=== PATIENT | male | born 1965 | race Caucasian/White ===

== ENCOUNTER 2023-11-25 16:54 | Inpatient (IN) | payer BC, SELFPAY ==
[2023-11-25 16:54] VITALS: BP 129/97; PULSE 129; RESP 18; O2SAT 97; BMI 32.5
--- NOTE | 2023-11-25 17:39 | PC.NURSE ---
Dr. Becker at [facility] for pt eval
--- NOTE | 2023-11-25 17:46 | HMH.EDGENADL ---
Discharge Plan Disposition Patient Disposition: Admitted Clinical Impressions Clinical Impression: Alcohol abuse with withdrawal without complication, Hypomagnesemia, Elevated lactic acid level Discharge ED Provider: Tod Becker General Adult HPI General Chief complaint: Alcohol Stated complaint: throat pain Time Seen by Provider: 11/25/23 17:10 Mode of Arrival: EMS Source of Information: Patient and EMS Limitations: etoh Description of Symptoms (Recalled from ER Triage Doc. by RN): pt presents to ED by [facility] c/o sore throat and etoh. per report pt states he had 2 shots of 92 proof today. pt denies SI/HI at this time. History of Present Illness HPI narrative: Patient is a 58-year-old male with no reported comorbidities, hard of hearing, chronic alcoholic who presents emergency department for evaluation of wanting to discontinue alcohol use. Patient states he used to drink beer socially until his 2 and half years ago and since then he has drank 10 shots of [place] every day. He has some sore throat over the last couple of days and is wanting to come off of alcohol at this time. Last drink 8 AM this morning with 2 shots. He has vague abdominal discomfort but no significant pain. There is associated nausea without vomiting. Patient has never been hospitalized for alcohol withdrawal. Related Data Allergies Allergy/AdvReac Type Severity Reaction Status Date / Time No Known Allergies Allergy Verified 11/25/23 16:59 [facility] Disclaimer: The information contained in this section may have been updated after the patient was seen, as this information can be updated by other users. Medical History (Updated 11/25/23 @ 23:16 by Tod Becker MD) COPD (chronic obstructive pulmonary disease) GERD (gastroesophageal reflux disease) Pancreatitis Sleep apnea Social History (Updated 11/25/23 @ 22:56 by Daniela Barclay RN) Smoking Status: Former smoker alcohol intake: current current occupational status: employed Travel in the last 8 weeks: Inside the [place] ROS Obtained: Yes Systems reviewed as appropriate & no additional complaints except as documented Physical Exam General General appearance: alert and in no apparent distress Head Head exam: atraumatic and normocephalic Eye Eye exam: Present PERRL and EOMI ENT ENT exam: Present mucous membranes moist Neck Neck exam: Present normal inspection Chest Chest inspection: Present normal inspection and symmetric chest wall rise Respiratory Respiratory exam: Present normal lung sounds bilaterally; Absent respiratory distress Cardiovascular Cardiovascular exam: Present regular rate and normal rhythm Abdominal Exam Abdominal exam: Present soft; Absent tenderness, guarding or rebound Extremities Exam Extremities exam: Present normal inspection Neurological Exam Neurological exam: Present alert Psychiatric Psychiatric exam: Present normal affect Skin Skin exam: Present warm and dry Medical Decision Making [place] Inquiry Pt receiving controlled substance: No Vital Signs: 11/25/23 16:54 11/25/23 20:05 11/25/23 20:30 Temperature Temperature Source Pulse Rate 117 H 124 H Pulse Rate [Right Radial] 129 H Respiratory Rate 18 Blood Pressure 130/94 H 145/95 H Blood Pressure [Right Arm] 129/97 H Blood Pressure Mean 106 102 Blood Pressure Mean [Right Arm] 107 Blood Pressure Source [Right Arm] Automatic Cuff Blood Pressure Position [Right Arm] Sitting 02 Sat by Pulse Oximetry 97 99 93 L Oxygen Delivery Method Room Air 11/25/23 20:39 Temperature 98.2 F Temperature Source Oral Pulse Rate 124 H Pulse Rate [Right Radial] Respiratory Rate 18 Blood Pressure 145/95 H Blood Pressure [Right Arm] Blood Pressure Mean Blood Pressure Mean [Right Arm] Blood Pressure Source [Right Arm] Blood Pressure Position [Right Arm] 02 Sat by Pulse Oximetry Oxygen Delivery Method Lab Data Lab Results 11/25/23 17:00: SARS-CoV-2 (PCR) Not detected, Influenza A Untype (PCR) Not detected, Influenza Type B (PCR) Not detected 11/25/23 17:35: WBC 9.5, RBC 4.98, Hgb 14.2, Hct 42.5, MCV 85.4, MCH 28.5, MCHC 33.4, RDW 18.1 H, Plt Count 162, MPV 7.5, Neut % (Auto) 78.3, Lymph % (Auto) 17.5, [place] % (Auto) 3.2, Eos % (Auto) 0.4, Baso % (Auto) 0.6, Neut # (Auto) 7.5, Lymph # (Auto) 1.7, [place] # (Auto) 0.3, Eos # (Auto) 0.0, Baso # (Auto) 0.1, Sodium 140, Potassium 4.0, Chloride 98, Carbon Dioxide 23, Anion Gap 23.0 H, BUN 6 L, Creatinine 0.90, Estimated Creat Clear 125, Estimated GFR 86, Est GFR ( Amer) 105, Glucose 142 H, Calcium 8.0 L, Magnesium 1.4 L, Total Bilirubin 0.8, AST 102 H, ALT 43, Alkaline Phosphatase 109, Total Protein 7.9, Albumin 4.7, Globulin 3.2, Albumin/Globulin Ratio 1.5, Lipase 236, Plasma/Serum Alcohol 326 H 11/25/23 17:46: VBG pH 7.42 H, VBG pCO2 31.7 L, VBG pO2 39.0, VBG HCO3 19.9 L, VBG Total CO2 20.8 L, VBG O2 Saturation 69.3, VBG Base Excess -4.7 L 11/25/23 17:52: Group A Strep Rapid Negative 11/25/23 18:46: Lactate 5.0 H 11/25/23 20:17: Urine Color Yellow, Urine Appearance Slightly cloudy, Urine pH 5.5, Ur Specific Reform >= 1.030, Urine Protein 2+, Urine Glucose (UA) Negative, Urine Ketones Trace, Urine Blood 2+, Urine Nitrate Negative, Urine Bilirubin Negative, Urine Urobilinogen 0.2, Ur Leukocyte Esterase Negative, Urine RBC 10-20, Urine WBC None, Ur Squamous Epith Cells Occasional, Urine Bacteria Trace 11/25/23 17:35 11/25/23 17:35 Orders (Tests/Meds): ED MEDICATIONS Generic Name Dose Route Start Last Admin Trade Name Valentin PRN Reason Stop Dose Admin Chlordiazepoxide HCl 25 mg 11/26/23 09:00 Chlordiazepoxide 25mg Capsule PO 12/26/23 08:59 TID [facility] Enoxaparin Sodium 40 mg 11/25/23 20:15 11/25/23 22:25 Enoxaparin 40mg/0.4ml Syringe SQ 12/25/23 20:14 40 mg DAILY SAM Administration Famotidine 20 mg 11/25/23 21:00 Famotidine 20mg/2ml Vial IV 12/25/23 20:59 BID SAM Folic Acid 1 mg 11/25/23 20:15 11/25/23 22:25 Folic Acid 1mg Tablet PO 12/25/23 20:14 1 mg DAILY SAM Administration Multivitamins 10 ml/ Thiamine 1,015 mls @ 125 mls/hr 11/25/23 20:15 11/25/23 22:26 HCl 100 mg/ Magnesium Sulfate IV 12/25/23 20:14 125 mls/hr 2 gm/ Lactated Ringer's DAILY SAM Administration Lorazepam 2 mg 11/25/23 20:11 Lorazepam 2mg/Ml Vial IV 12/25/23 20:10 Q1HP PRN CIWA >16 Lorazepam 1 mg 11/25/23 21:19 Lorazepam 1mg Tablet PO 12/25/23 21:18 Q6HP PRN CIWA 2-7 Multivitamins 1 each 11/26/23 17:00 Multivitamin Tablet PO 12/26/23 16:59 1700 SAM Nicotine 21 mg 11/25/23 20:09 Nicotine 21mg/24hr Patch TD 12/25/23 20:08 DAILYP PRN Nicotine Cravings Ondansetron HCl 4 mg 11/25/23 20:09 11/25/23 21:18 Ondansetron 4mg/2ml Vial IV 12/25/23 20:08 4 mg Q8HP PRN Administration Nausea Pantoprazole Sodium 40 mg 11/25/23 21:00 11/25/23 21:18 Pantoprazole 40mg Vial IV 12/25/23 20:59 40 mg HS SAM Administration Phenol 0 ml 11/25/23 21:51 Phenol Throat [place] 177 Ml Bottle MM 12/25/23 21:50 NEEDED PRN Sore Throat Sodium Chloride 10 ml 11/25/23 17:00 Sodium Chloride 0.9% 10ml Flush Syringe IV 12/25/23 16:59 NEEDED PRN Maintain IV Site Sodium Chloride 10 ml 11/25/23 17:54 Sodium Chloride 0.9% 10ml Vial IV 12/25/23 17:53 NEEDED PRN to Dilute Lorazepam inj Sodium Chloride 10 ml 11/25/23 20:11 Sodium Chloride 0.9% 10ml Vial IV 12/25/23 20:10 NEEDED PRN to Dilute Lorazepam inj Sodium Chloride 8 ml 11/25/23 20:11 Sodium Chloride 0.9% 10ml Vial IV 12/25/23 20:10 NEEDED PRN dilute pepcid Thiamine HCl 100 mg 11/25/23 20:15 11/25/23 22:25 Thiamine 100mg Tablet PO 11/27/23 09:01 100 mg DAILY SAM Administration Discontinued Medications Generic Name Dose Route Start Last Admin Trade Name Freq PRN Reason Stop Dose Admin Lactated Ringer's 1,000 mls @ 999 mls/hr 11/25/23 17:44 11/25/23 17:48 Lactated Ringer's 1000 Ml Bag IV 11/25/23 18:44 999 mls/hr .Q1H1M ONE Administration Magnesium Sulfate 2 gm in 50 mls @ 50 mls/hr 11/25/23 20:05 11/25/23 21:18 Magnesium Sulfate 2gm/50ml Premix IV 11/25/23 21:04 50 mls/hr ONCE ONE Administration Lorazepam 1 mg 11/25/23 17:54 11/25/23 18:00 Lorazepam 2mg/Ml Vial IV 11/25/23 17:55 1 mg ONCE ONE Administration Ondansetron HCl 4 mg 11/25/23 17:44 11/25/23 17:48 Ondansetron 4mg/2ml Vial IV 11/25/23 17:45 4 mg ONCE ONE Administration ORDERS Category Date Time Status Complete Blood Count Auto Diff AMLAB Lab 11/26/23 06:00 Ordered Complete Blood Count Auto Diff Stat Lab 11/25/23 17:35 Completed Comprehensive Metabolic Panel AMLAB Lab 11/26/23 06:00 Ordered Comprehensive Metabolic Panel Stat Lab 11/25/23 17:35 Completed Ethyl Alcohol Stat Lab 11/25/23 17:35 Completed Lactic Acid Stat Lab 11/25/23 18:46 Completed Lipase Stat Lab 11/25/23 17:35 Completed MG [Magnesium] Stat Lab 11/25/23 17:35 Completed Magnesium AMLAB Lab 11/26/23 06:00 Ordered Phosphorous Routine Lab 11/25/23 20:11 Ordered Prothrombin Time INR Routine Lab 11/25/23 20:11 Ordered Rapid PCR Covid and Flu A/B Stat Lab 11/25/23 17:00 Completed Rapid Strep Scrn Group A [Strep Scrn Group A (Rapid)] Lab 11/25/23 17:52 Completed Stat UA [Urinalysis and Microscopic] Stat Lab 11/25/23 20:17 Completed Vitamin B1 AMLAB Lab 11/26/23 06:00 Ordered Vitamin B12 Routine Lab 11/25/23 20:11 Ordered Strep Screen Confirmation Stat Micro 11/25/23 17:52 Received VBG [Venous Blood Gas] Stat RT 11/25/23 17:46 Completed ECG initial [place] Stat Y 11/25/23 18:19 Ordered Medical Decision Narrative: In summary patient is a 58-year-old male with past medical history described above who presents emergency department for evaluation of sore throat and alcohol withdrawal. Patient is hemodynamically stable nontoxic-appearing upon arrival, significant tachycardia, afebrile. Differential includes alcohol withdrawal, strep pharyngitis, COVID, among others. Workup will be conducted with hematologic labs, urinalysis, viral swab, strep swab. CIWA scale will be performed. [id number] ultrasound at bedside shows no ascites (images were not saved to permanent archive therefore no note is warranted). Yes initial workup reviewed by me, hematologic labs show no significant leukocytosis or anemia, mild respiratory alkalosis, hypomagnesemia which will be repleted. Patient has elevated lactate and significantly elevated alcohol level which is being volume resuscitated. I do not suspect that patient is septic given his lack of infectious symptoms and no significant white count. Patient would benefit from admission for monitoring for acute withdrawal and prolonged volume resuscitation with serial lactate measurements. Given this the case was discussed with hospital medicine who admit the patient their service for continued evaluation at this time. Critical Care Critical Care Time Critical Care Time: No
--- NOTE | 2023-11-25 17:46 | PC.NURSE ---
Notified RT of VBG
[2023-11-25] MEDS: ONDANSETRON 4MG/2ML VIAL 4 MG IV ×2 (17:48→21:18)
[2023-11-25] MEDS: LACTATED RINGERS 1000ML 1,000 ML 999 ML IV (17:48)
[2023-11-25 17:52] LABS: Coronavirus 19, PCR Not Detected (NotDetected); Influenza A, PCR Not Detected (NotDetected); Influenza B, PCR Not Detected (NotDetected)
[2023-11-25 17:52] LABS: VBG Base Excess -4.7 mmol/L (-2.4-2.3); VBG HCO3 19.9 mmol/L (23-30); VBG Oxygen Saturation 69.3 % (50-70); VBG PCO2 31.7 mmol/L (35-51); VBG PH 7.42 mmol/L (7.31-7.41); VBG Total CO2 20.8 mmol/L (23-27)
[2023-11-25 17:53] LABS: Basophils # 0.1 K/mm3 (0-0.2); Basophils % 0.6 % (0.1-2.0); Eosinophils % 0.4 % (0.1-12.0); Hematocrit 42.5 % (42.0-52.0); Hemoglobin 14.2 g/dL (14.1-18.0); Lymphocytes # 1.7 K/mm3 (0.7-4.5); Lymphocytes % 17.5 % (10-50); Mean Corpuscular HGB Conc 33.4 g/dL (31.8-35.4); Mean Corpuscular Hemoglobin 28.5 pg (27.0-31.2); Mean Corpuscular Volume 85.4 fl (80-94); Mean Platelet Volume 7.5 fl (7.4-10.4); Monocytes # 0.3 K/mm3 (0.1-1.0); Monocytes % 3.2 % (1.7-9.3); Neutrophils # 7.5 K/mm3 (1.8-7.8); Neutrophils % 78.3 % (37.0-80.0); Platelet Count 162 K/mm3 (142-424); Red Blood Count 4.98 M/mm3 (4.60-6.20); Red Cell Distribution Width 18.1 % (11.5-17.5); White Blood Count 9.5 K/mm3 (4.8-10.8)
[2023-11-25] MEDS: LORazepam 2MG/ML VIAL 1 MG IV (18:00)
[2023-11-25 18:05] LABS: Alanine Aminotransferase 43 U/L (12-78); Albumin Level 4.7 g/dl (3.5-5.0); Albumin/Globulin Ratio 1.5 (1.1-1.8); Alkaline Phosphatase 109 U/L (38-126); Aspartate Amino Transferase 102 U/L (17-59); Bilirubin,Total 0.8 mg/dl (0.2-1.3); Blood Urea Nitrogen 6 mg/dl (9-20); Carbon Dioxide 23 mmol/L (22.0-30.0); Chloride 98 mmol/L (98-107); Creatinine Clearance Estimated 125 mL/min (50-200); Estimated Glomerular Filt Rate 86 ml/min (>60); GFR (African American) 105 ML/MIN (>60); Globulin 3.2 g/dL (1.3-3.2); Glucose 142 mg/dl (74-100); Sodium 140 mmol/L (136-145); Total Protein,Serum 7.9 g/dl (6.3-8.2)
[2023-11-25 18:06] LABS: Lipase 236 U/L (23-300); Magnesium 1.4 mg/dl (1.6-2.3)
--- NOTE | 2023-11-25 18:19 | ECG_ITS ---
APPROVED REPORT Exam: Resting ECG HR:116 bpm ECG Measurements Heart Rate 116 AXES MS 132 P 38 QRSd 93 QRS 41 QT 319 T 33 QTc 388 Conclusion SINUS TACHYCARDIA ABNORMAL RHYTHM ECG UNCONFIRMED REPORT Electronically signed by : Seb Haynes MD 11/29/2023 14:50:01
[2023-11-25 18:29] LABS: Strep Scrn Group A (Rapid) Negative (Negative)
[2023-11-25 18:34] LABS: Ethyl Alcohol 326 mg/dl (0-10)
[2023-11-25 20:05] VITALS: BP 130/94; PULSE 117; O2SAT 99
--- NOTE | 2023-11-25 20:14 | P.HP_ITS ---
History of Present Illness *Admission Date: 11/25/23 *Reason for visit:: alcohol withdrawal *History of present illness: This is a 58-year-old male with reported hypertention, Prediabetes, former smoker, obesity , hard of hearing, chronic alcoholic who presents emergency department for evaluation. Patient last drink 8 AM this morning with allegedly 2 shots. He started drinking heavily after his 2 and half years ago. Patient stated he wanting to discontinue alcohol use. Currently c/o palpitations and feeling shaky He has some sore throat over the last couple of days and is wanting to come off of alcohol at this time. He has vague abdominal discomfort but no significant pain. There is associated nausea without vomiting. Patient has never been hospitalized for alcohol withdrawal. Admitted for further treatment and management. [facility] Disclaimer: The information contained in this section may have been updated after the patient was seen, as this information can be updated by other users. Medical History (Updated 11/26/23 @ 00:08 by Grant Chiang APRN) COPD (chronic obstructive pulmonary disease) GERD (gastroesophageal reflux disease) Pancreatitis Sleep apnea Social History (Updated 11/25/23 @ 22:56 by Daniela Barclay RN) Smoking Status: Former smoker alcohol intake: current current occupational status: employed Travel in the last 8 weeks: [place] the [place] Review of Systems Review of Systems Review of systems:: pertinent systems reviewed and negative unless documented below Meds Home Medications and Allergies Home Medications Medication Instructions Recorded Confirmed Type cyclobenzaprine 10 mg tablet 10 mg PO TID PRN Muscle Spasm 11/26/23 11/26/23 History multivitamin with minerals 1 tab PO DAILY 11/26/23 11/26/23 History omeprazole 20 mg capsule,delayed 20 mg PO BID 11/26/23 11/26/23 History release New Prescriptions to Start Prescriptions: Allergies Allergy/AdvReac Type Severity Reaction Status Date / Time No Known Allergies Allergy Verified 11/25/23 16:59 Exam Data for Last 24 hours Vital signs and Labs for Last 24 Hours: Pulse Resp BP Pulse Ox O2 Del Method 129 H 18 129/97 H 97 Room Air 11/25/23 16:54 11/25/23 16:54 11/25/23 16:54 11/25/23 16:54 11/25/23 16:54 Laboratory Results - last 24 hr 11/25/23 17:00: SARS-CoV-2 (PCR) Not detected, Influenza A Untype (PCR) Not detected, Influenza Type B (PCR) Not detected 11/25/23 17:35: WBC 9.5, RBC 4.98, Hgb 14.2, Hct 42.5, MCV 85.4, MCH 28.5, MCHC 33.4, RDW 18.1 H, Plt Count 162, MPV 7.5, Neut % (Auto) 78.3, Lymph % (Auto) 17.5, [place] % (Auto) 3.2, Eos % (Auto) 0.4, Baso % (Auto) 0.6, Neut # (Auto) 7.5, Lymph # (Auto) 1.7, [place] # (Auto) 0.3, Eos # (Auto) 0.0, Baso # (Auto) 0.1, Sod ium 140, Potassium 4.0, Chloride 98, Carbon Dioxide 23, Anion Gap 23.0 H, BUN 6 L, Creatinine 0.90, Estimated Creat Clear 125, Estimated GFR 86, Est GFR ( Amer) 105, Glucose 142 H, Calcium 8.0 L, Magnesium 1.4 L, Total Bilirubin 0.8, AST 102 H, ALT 43, Alkaline Phosphatase 109, Total Protein 7.9, Albumin 4.7, Globulin 3.2, Albumin/Globulin Ratio 1.5, Lipase 236, Plasma/Serum Alcohol 326 H 11/25/23 17:46: VBG pH 7.42 H, VBG pCO2 31.7 L, VBG pO2 39.0, VBG HCO3 19.9 L, VBG Total CO2 20.8 L, VBG O2 Saturation 69.3, VBG Base Excess -4.7 L 11/25/23 17:52: Group A Strep Rapid Negative 11/25/23 18:46: Lactate 5.0 H I & O for Last 24 hours: Intake & Output 11/22/23 11/23/23 11/24/23 11/25/23 23:59 23:59 23:59 23:59 Weight 99.79 kg Constitutional Constitutional: mild distress and cooperative *Routine HEENT Exam Head: Present normocephalic and atraumatic Eye: Present EOMI, PERRL and normal accommodation ENT: Present mucous membranes dry *Routine Neck Exam Neck: Present supple, full ROM and trachea midline *Routine Respiratory Exam Respiratory: Present diminished air movement, normal respiratory effort, able to speak in complete sentences and symmetric chest movement; Absent respiratory distress *Routine Cardiovascular Exam Cardiovascular: Present RRR, Normal S1, Normal S2 and tachycardia *Routine Abdominal Exam Abdominal: Present soft and normoactive bowel sounds; Absent organomegaly *Routine Rectal Exam Rectal:: deferred *Routine Genitalia Exam Genitalia:: deferred *Routine Extremities Exam Extremities: Present full ROM and pulses intact; Absent cyanosis, clubbing or edema *Routine Skin Exam Skin: Present intact, dry and warm *Routine Neurological Exam Neurological: Present alert, oriented X3, normal speech and tremors Routine Psychiatric Exam Psychiatric: Present normal thought process, cooperative and good judgment H&P: Result Imaging and Cardiology EKG: Status: image reviewed by me and Preliminary report Assessment and Plan *Assessment and plan (1) Alcohol abuse with withdrawal without complication: Status: Acute Category: Medical Code(s): F10.130 - Alcohol abuse with withdrawal, uncomplicated (2) Elevated lactic acid level: Status: Acute Category: Medical Code(s): R79.89 - Other specified abnormal findings of blood chemistry (3) Hypomagnesemia: Status: Acute Category: Medical Code(s): E83.42 - Hypomagnesemia (4) COPD (chronic obstructive pulmonary disease): Status: Acute Qualifiers: COPD type: unspecified COPD Qualified Code(s): J44.9 - Chronic obstructive pulmonary disease, unspecified Category: Medical Code(s): J44.9 - Chronic obstructive pulmonary disease, unspecified (5) GERD (gastroesophageal reflux disease): Status: Acute Qualifiers: Esophagitis presence: esophagitis presence not specified Qualified Code(s): K21.9 - Gastro-esophageal reflux disease without esophagitis Category: Medical Code(s): K21.9 - Gastro-esophageal reflux disease without esophagitis Plan 58-year-old male with reported hypertention, Prediabetes, former smoker, obesity , hard of hearing, chronic alcoholic who presents emergency department for evaluation. Patient last drink 8 AM this morning with allegedly 2 shots. He started drinking heavily after his 2 and half years ago. On arrival presented with tachycardia, nauseas and hand tremor. Lab work was obtained. Significant for low Mg and elevated lactic acidosis. Low suspicious of sepsis. Alcohol level on the 326. Findings discussed with ER for admission and management. Plan as follow: -Alcohol withdrawal without complication: elevated lactic acid and hypomagnesemia Admit patient for medical services, treatment and management. Dispo MedSurg Assess CIWA Ativan per CIWA protocol. Thiamine 100 mg IV x 3 doses Multivitamins with magnesium and folate IV Zofran as needed for nausea Monitor labs in the morning Replaced magnesium. Monitor for other electrolyte imbalance Started on Librium 25 mg 3 times daily. Does may be taper down on second day. Seizure precaution Patient interested in stopping alcohol use. property disposal manager consult for assistance with detox from after medical stabilization -History of COPD: Not on oxygen condition stable. Resume home albuterol as needed Monitor for O2 sat GERD: On Protonix. Famotidine added. Former smoker. Nicotine patch as needed Lovenox for DVT prophylaxis. Full code Rounded on patient after nurse practitioner. Personally examined and interviewed patient. Agree with exam findings and care plan as documented. Having some increased CIWA scoring overnight. Continues to require inpatient management for alcohol withdrawal.
[2023-11-25 20:21] LABS: Microscopic, Urine URINE MICROSCOPIC (MICROSCOPIC)
[2023-11-25 20:23] LABS: Bilirubin,Urine Negative (Negative); Blood, Urine 2+ (Negative); Color,Urine YELLOW (Yellow); Glucose,Urine (UA) Negative (Negative); Ketones,Urine TRACE (Negative); Leukocyte Esterase,Urine Negative (Negative); Nitrate,Urine Negative (Negative); PH,Urine 5.5 (5.0-8.5); Protein,Urine 2+ (Negative); Specific Gravity, Urine >= 1.030 (1.005-1.030); Urobilinogen,Urine 0.2 EU/dl (0.2)
--- NOTE | 2023-11-25 20:24 | PC.NURSE ---
I called the supervisor tank house, STodd RN, for a bed for admission to the hospitalist.
[2023-11-25 20:25] LABS: Appearance,Urine Slightly Cloudy (Clear)
[2023-11-25 20:30] VITALS: BP 145/95; PULSE 124; O2SAT 93
[2023-11-25 20:37] LABS: Bacteria,Urine Trace /lpf; Squamous Epithelial Cell,Urine Occasional #/hpf (0-5)
[2023-11-25 20:39] VITALS: BP 145/95; PULSE 124; RESP 18; TEMP 36.8; O2SAT 93
--- NOTE | 2023-11-25 20:58 | PC.NURSE ---
pt arrived to floor at this time
[2023-11-25 21:00] VITALS: BP 137/85; PULSE 119; RESP 18; TEMP 36.7; O2SAT 98; BMI 31.4
[2023-11-25] MEDS: PANTOPRAZOLE 40MG VIAL 40 MG IV (21:18)
[2023-11-25] MEDS: MAGNESIUM SULFATE IN WATER 2 GM/50 ML PIGGYBACK IV (21:18)
[2023-11-25] MEDS: ENOXAPARIN 40MG/0.4ML SYRINGE 40 MG SQ (22:25)
[2023-11-25] MEDS: THIAMINE 100MG TABLET 100 MG PO (22:25)
[2023-11-25] MEDS: FOLIC ACID 1MG TABLET 1 MG PO (22:25)
[2023-11-25] MEDS: MVI, ADULT NO.1 WITH VIT K 10 ML, THIAMINE HCL 100 MG, MAGNESIUM SULFATE 2 GM in LACTAT... 125 ML IV (22:26)
[2023-11-25 22:51] LABS: Reflex Lactic Add Lactic Reflex
[2023-11-25 23:40] LABS: Phosphorous 2.8 mg/dl (2.5-4.5)
[2023-11-25 23:42] LABS: INR 1.14 (0.9-1.1); Prothrombin Time 12.2 seconds (10.1-12.5)
[2023-11-25 23:51] LABS: Lactic Acid Follow Up (RFLX 1) 4.6 mmol/L (0.7-2.1)
[2023-11-26] VITALS: BP 125/87; PULSE 110; RESP 16; TEMP 36.8; O2SAT 95
[2023-11-26] MEDS: FAMOTIDINE 20MG/2ML VIAL 20 MG IV ×3 (00:13→21:11)
[2023-11-26] MEDS: LORazepam 2MG/ML VIAL 2 MG IV ×12 (00:14→21:12)
[2023-11-26 00:30] LABS: Vitamin B12 675 pg/mL (239-931)
[2023-11-26 01:26] LABS: Reflex Lactic (2 hrs) Add Lactic Reflex
[2023-11-26 02:20] LABS: Lactic Acid Follow up (RFLX 2) 3.6 mmol/L (0.7-2.1)
[2023-11-26] MEDS: LORazepam 1MG TABLET 1 MG PO (02:49)
--- NOTE | 2023-11-26 03:22 | ECG_ITS ---
APPROVED REPORT Exam: Resting ECG HR:111 bpm ECG Measurements Heart Rate 111 AXES OR 104 P 38 QRSd 94 QRS 51 QT 358 T 47 QTc 424 Conclusion SINUS TACHYCARDIA WITH SHORT OR INTERVAL WITH FREQUENT VENTRICULAR PREMATURE COMPLEXES ABNORMAL RHYTHM ECG INTERPRETATION BASED ON A DEFAULT AGE OF 40 YEARS UNCONFIRMED REPORT Electronically signed by : Seb Haynes MD 11/29/2023 14:48:35
[2023-11-26 04:00] VITALS: BP 130/98; PULSE 110; PULSE 112; RESP 16; TEMP 36.9; O2SAT 96; BMI 31.4
[2023-11-26] MEDS: ONDANSETRON 4MG/2ML VIAL 4 MG IV (05:46)
[2023-11-26 06:00] LABS: Basophils % 0.6 % (0.1-2.0); Eosinophils % 0.4 % (0.1-12.0); Hematocrit 36.9 % (42.0-52.0); Lymphocytes # 1.6 K/mm3 (0.7-4.5); Lymphocytes % 30.2 % (10-50); Mean Corpuscular HGB Conc 33.7 g/dL (31.8-35.4); Mean Corpuscular Hemoglobin 28.3 pg (27.0-31.2); Mean Corpuscular Volume 83.9 fl (80-94); Mean Platelet Volume 7.7 fl (7.4-10.4); Monocytes # 0.3 K/mm3 (0.1-1.0); Monocytes % 6.1 % (1.7-9.3); Neutrophils # 3.3 K/mm3 (1.8-7.8); Neutrophils % 62.8 % (37.0-80.0); Platelet Count 114 K/mm3 (142-424); Red Blood Count 4.39 M/mm3 (4.60-6.20); Red Cell Distribution Width 18.2 % (11.5-17.5); White Blood Count 5.3 K/mm3 (4.8-10.8)
[2023-11-26 06:06] LABS: Hemoglobin 12.4 g/dL (14.1-18.0)
[2023-11-26 06:07] LABS: Alanine Aminotransferase 42 U/L (12-78); Albumin Level 3.7 g/dl (3.5-5.0); Albumin/Globulin Ratio 1.3 (1.1-1.8); Alkaline Phosphatase 91 U/L (38-126); Anion Gap 13.2 mEq/L (5-15); Aspartate Amino Transferase 81 U/L (17-59); Bilirubin,Total 1.1 mg/dl (0.2-1.3); Blood Urea Nitrogen 4 mg/dl (9-20); Calcium 7.7 mg/dl (8.4-10.2); Carbon Dioxide 26 mmol/L (22.0-30.0); Chloride 101 mmol/L (98-107); Creatinine Clearance Estimated 135 mL/min (50-200); Estimated Glomerular Filt Rate 99 ml/min (>60); GFR (African American) 120 ML/MIN (>60); Globulin 2.8 g/dL (1.3-3.2); Glucose 125 mg/dl (74-100); Magnesium 2.2 mg/dl (1.6-2.3); Potassium 3.2 mmoL/L (3.5-5.1); Sodium 137 mmol/L (136-145); Total Protein,Serum 6.5 g/dl (6.3-8.2)
[2023-11-26] MEDS: KCl 20mEq/100ml 100 ML 50 MEQ IV ×2 (07:15→14:06)
[2023-11-26 08:00] VITALS: BP 162/80; PULSE 110; PULSE 112; RESP 20; TEMP 36.8; O2SAT 97
[2023-11-26 09:20] LABS: Hemoglobin A1C 6.1 % (4.0-6.0)
[2023-11-26] MEDS: MVI, ADULT NO.1 WITH VIT K 10 ML, THIAMINE HCL 100 MG, MAGNESIUM SULFATE 2 GM in LACTAT... 125 ML IV ×2 (11:00→13:08)
[2023-11-26] MEDS: THIAMINE 100MG TABLET 100 MG PO (11:00)
--- NOTE | 2023-11-26 12:04 | P.PN_ITS ---
Subjective *Date: 11/26/23 *Time: 12:04 Interval history: Having elevated CIWA scores throughout the night. Continues to require IV Ativan. Declined Librium due to it making him fatigued. Feeling a little bit better but having some increased tremor this morning on rounds. No chest pain or shortness of breath. Medical Exam Vital signs and Labs for Last 24 Hours: Vital Signs Temp Pulse Pulse Resp BP BP Pulse Ox 11/26/23 08:00 98.2 F 112 H 20 162/80 H 97 11/26/23 07:00 11/26/23 04:00 98.4 F 112 H 16 130/98 H 96 11/26/23 05:00 11/26/23 04:00 110 H 11/26/23 03:00 11/26/23 00:00 98.3 F 110 H 16 125/87 95 11/26/23 01:00 11/25/23 23:00 11/25/23 21:00 11/25/23 21:00 98.0 F 119 H 18 137/85 98 11/25/23 23:00 11/25/23 20:39 98.2 F 124 H 18 145/95 H 11/25/23 20:30 124 H 145/95 H 93 L 11/25/23 20:05 117 H 130/94 H 99 11/25/23 16:54 129 H 18 129/97 H 97 O2 Del Method 11/26/23 08:00 Room Air 11/26/23 07:00 Room Air 11/26/23 04:00 Room Air 11/26/23 05:00 Room Air 11/26/23 04:00 11/26/23 03:00 Room Air 11/26/23 00:00 Room Air 11/26/23 01:00 Room Air 11/25/23 23:00 Room Air 11/25/23 21:00 Room Air 11/25/23 21:00 Room Air 11/25/23 23:00 Room Air 11/25/23 20:39 11/25/23 20:30 11/25/23 20:05 11/25/23 16:54 Room Air Intake and Output 11/25/23 11/26/23 11/26/23 23:59 07:59 15:59 Intake Total 786 / 1106 320 / 1106 Output Total 0 / 0 0 / 0 Balance 786 / 1106 320 / 1106 Intake: Intake, Oral Amount 320 / 320 Intake, Total IV Amount 786 / 786 Mvi, Adult No.1 with Vit K 10 786 / 786 ml Thiamine HCl 100 mg Magnesium Sulfate 2 gm In Lactated Ringers 1000ML 1,000 ml @ 125 mls/hr IV DAILY [facility] Rx #:[id number] Output: Output, Urine Amount 0 / 0 0 / 0 Other: Number of Voids 0 Number of Unmeasured Voids 1 Weight 96.19 kg 96.19 kg Patient Weight 11/26/23 23:59 Weight 96.19 kg Laboratory Results - last 24 hr 11/25/23 17:00: SARS-CoV-2 (PCR) Not detected, Influenza A Untype (PCR) Not detected, Influenza Type B (PCR) Not detected 11/25/23 17:35: WBC 9.5, RBC 4.98, Hgb 14.2, Hct 42.5, MCV 85.4, MCH 28.5, MCHC 33.4, RDW 18.1 H, Plt Count 162, MPV 7.5, Neut % (Auto) 78.3, Lymph % (Auto) 17.5, [place] % (Auto) 3.2, Eos % (Auto) 0.4, Baso % (Auto) 0.6, Neut # (Auto) 7.5, Lymph # (Auto) 1.7, [place] # (Auto) 0.3, Eos # (Auto) 0.0, Baso # (Auto) 0.1, Sodium 140, Potassium 4.0, Chloride 98, Carbon Dioxide 23, Anion Gap 23.0 H, BUN 6 L, Creatinine 0.90, Estimated Creat Clear 125, Estimated GFR 86, Est GFR ( Amer) 105, Glucose 142 H, Calcium 8.0 L, Magnesium 1.4 L, Total Bilirubin 0.8, AST 102 H, ALT 43, Alkaline Phosphatase 109, Total Protein 7.9, Albumin 4.7, Globulin 3.2, Albumin/Globulin Ratio 1.5, Lipase 236, Plasma/Serum Alcohol 326 H 11/25/23 17:46: VBG pH 7.42 H, VBG pCO2 31.7 L, VBG pO2 39.0, VBG HCO3 19.9 L, VBG Total CO2 20.8 L, VBG O2 Saturation 69.3, VBG Base Excess -4.7 L 11/25/23 17:52: Group A Strep Rapid Negative 11/25/23 18:46: Lactate 5.0 H 11/25/23 20:17: Urine Color Yellow, Urine Appearance Slightly cloudy, Urine pH 5.5, Ur Specific [place] >= 1.030, Urine Protein 2+, Urine Glucose (UA) Negative, Urine Ketones Trace, Urine Blood 2+, Urine Nitrate Negative, Urine Bilirubin Negative, Urine Urobilinogen 0.2, Ur Leukocyte Esterase Negative, Urine RBC 10-20, Urine WBC None, Ur Squamous Epith Cells Occasional, Urine Bacteria Trace 11/25/23 23:20: PT 12.2, INR 1.14 H, Lactate 4.6 H, Phosphorus 2.8, Vitamin B12 675 11/26/23 02:05: Lactate 3.6 H 11/26/23 05:11: WBC 5.3 D, RBC 4.39 L, Hgb 12.4 L D, Hct 36.9 L, MCV 83.9, MCH 28.3, MCHC 33.7, RDW 18.2 H, Plt Count 114 L D, MPV 7.7, Neut % (Auto) 62.8, Lymph % (Auto) 30.2, [place] % (Auto) 6.1, Eos % (Auto) 0.4, Baso % (Auto) 0.6, Neut # (Auto) 3.3, Lymph # (Auto) 1.6, [place] # (Auto) 0.3, Eos # (Auto) 0.0, Baso # (Auto) 0.0, Sodium 137, Potassium 3.2 L, Chloride 101, Carbon Dioxide 26, Anion Gap 13.2, BUN 4 L D, Creatinine 0.80, Estimated Creat Clear 135, Estimated GFR 99, Est GFR ( Amer) 120, Glucose 125 H, Hemoglobin A1c 6.1 H, Calcium 7.7 L, Magnesium 2.2 D, Total Bilirubin 1.1, AST 81 H, ALT 42, Alkaline Phosphatase 91, Total Protein 6.5, Albumin 3.7 D, Globulin 2.8, Albumin/Globulin Ratio 1.3 I & O for Labs for Last 24 Hours: Intake & Output 11/23/23 11/24/23 11/25/23 11/26/23 23:59 23:59 23:59 23:59 Intake Total 1106 / 1106 Output Total 0 / 0 Balance 1106 / 1106 Weight 96.19 kg 96.19 kg Constitutional: Present no acute distress, obese and chronically ill appearing Head: Present atraumatic and normocephalic ENT: Present normal exam Neck: Present normal inspection Respiratory: Present normal respiratory effort; Absent rhonchi, wheezes or crackles Cardiac: Present Regular Rhythm and Tachycardia GI: Present soft and normal bowel sounds; Absent distention or tenderness Extremities: Present normal inspection and full ROM Skin: Present intact; Absent erythema Neuro: Present Grossly Intact, alert, awake, oriented x 3 and moves all extremities Comment:: tremor Assessment and Plan *Assessment and plan (1) Alcohol abuse with withdrawal without complication: Status: Acute Category: Medical Code(s): F10.130 - Alcohol abuse with withdrawal, uncomplicated (2) Elevated lactic acid level: Status: Acute Category: Medical Code(s): R79.89 - Other specified abnormal findings of blood chemistry (3) Hypomagnesemia: Status: Acute Category: Medical Code(s): E83.42 - Hypomagnesemia (4) COPD (chronic obstructive pulmonary disease): Status: Acute Qualifiers: COPD type: unspecified COPD Qualified Code(s): J44.9 - Chronic obstructive pulmonary disease, unspecified Category: Medical Code(s): J44.9 - Chronic obstructive pulmonary disease, unspecified (5) GERD (gastroesophageal reflux disease): Status: Acute Qualifiers: Esophagitis presence: esophagitis presence not specified Qualified Code(s): K21.9 - Gastro-esophageal reflux disease without esophagitis Category: Medical Code(s): K21.9 - Gastro-esophageal reflux disease without esophagitis Plan 58-year-old male with reported hypertention, Prediabetes, former smoker, obesity , hard of hearing, chronic alcoholic who presents emergency department for evaluation. Patient last drink 8 AM this morning with allegedly 2 shots. He started drinking heavily after his 2 and half years ago. On arrival presented with tachycardia, nauseas and hand tremor. Lab work was obtained. Significant for low Mg and elevated lactic acidosis. Low suspicious of sepsis. Alcohol level on the 326. Findings discussed with ER for admission and management. Continues to have elevated CIWA scores necessitating inpatient management. Problems addressed as follows: -Alcohol withdrawal without complication: elevated lactic acid and hypomagnesemia - Continue CIWA protocol. Seizure precautions continuously. - Ativan per CIWA protocol. Currently necessitating IV 2 mg every hour. Monitoring for toxicity - Thiamine 100 mg IV x 3 doses - Multivitamins with magnesium and folate IV - Zofran as needed for nausea - Magnesium 2.2 this morning. Repeat CBC, CMP, magnesium ordered for the morning tomorrow. Replaced magnesium. Monitor for other electrolyte imbalance - Patient interested in stopping alcohol use. manager apple consult for assistance with detox from after medical stabilization -History of COPD: Not on oxygen, goal sats greater 90%. Condition stable. Resume home albuterol as needed GERD: On Protonix. Famotidine added. Former smoker. Nicotine patch as needed Lovenox for DVT prophylaxis. Full code Regular diet
[2023-11-26 13:55] VITALS: BMI 31.4
[2023-11-26] MEDS: ENOXAPARIN 40MG/0.4ML SYRINGE 40 MG SQ (14:06)
[2023-11-26] MEDS: FOLIC ACID 1MG TABLET 1 MG PO (14:06)
[2023-11-26 16:00] VITALS: BP 169/86; PULSE 120; RESP 20; O2SAT 96
[2023-11-26] MEDS: MULTIVITAMIN TABLET 1 EACH PO (16:25)
--- NOTE | 2023-11-26 18:07 | PC.NURSE ---
pzatient admitted for alcohol withdrawl. Patient has had hallucinations and has been pacing throughout shift even with PRN ativan order. Seizure precautions intact. Patient continues to have high CIWA scores. Patient has ripped out 2 IVs today and continues to talk about going home even though patient has not called a ride. Patient has been confused throughout shift. MD and RN have explained importance of staying for treatment to patient and explained the dangers of being discharged at this time. Patient now has a sitter for patient safety.
[2023-11-26 20:00] VITALS: BP 136/107; PULSE 110; PULSE 114; RESP 20; TEMP 36.5; O2SAT 97
[2023-11-26] MEDS: GABAPENTIN 100MG CAPSULE 100 MG PO (21:12)
[2023-11-26] MEDS: PANTOPRAZOLE 40MG VIAL 40 MG IV (21:30)
[2023-11-27] VITALS (7 sets, daily range): BP systolic 140–158; BP diastolic 78–109; PULSE 90–121; RESP 18; TEMP 36.6–37; O2SAT 97–99; BMI 31.4
[2023-11-27] MEDS: HALOPERIDOL LACTATE 5 MG/ML VIAL IV (01:22)
[2023-11-27 07:44] LABS: Alanine Aminotransferase 37 U/L (12-78); Albumin Level 3.8 g/dl (3.5-5.0); Albumin/Globulin Ratio 1.4 (1.1-1.8); Alkaline Phosphatase 79 U/L (38-126); Anion Gap 10.4 mEq/L (5-15); Aspartate Amino Transferase 69 U/L (17-59); Bilirubin,Total 1.3 mg/dl (0.2-1.3); Blood Urea Nitrogen 3 mg/dl (9-20); Calcium 8.2 mg/dl (8.4-10.2); Carbon Dioxide 29 mmol/L (22.0-30.0); Chloride 101 mmol/L (98-107); Creatinine Clearance Estimated 155 mL/min (50-200); Estimated Glomerular Filt Rate 115 ml/min (>60); GFR (African American) 140 ML/MIN (>60); Globulin 2.8 g/dL (1.3-3.2); Glucose 122 mg/dl (74-100); Magnesium 1.9 mg/dl (1.6-2.3); Potassium 3.4 mmoL/L (3.5-5.1); Sodium 137 mmol/L (136-145); Total Protein,Serum 6.6 g/dl (6.3-8.2)
[2023-11-27 07:55] LABS: Basophils % 0.5 % (0.1-2.0); Eosinophils # 0.2 K/mm3 (0.0-0.4); Eosinophils % 2.3 % (0.1-12.0); Hematocrit 36.2 % (42.0-52.0); Hemoglobin 12.4 g/dL (14.1-18.0); Lymphocytes # 1.5 K/mm3 (0.7-4.5); Lymphocytes % 23.8 % (10-50); Mean Corpuscular HGB Conc 34.3 g/dL (31.8-35.4); Mean Corpuscular Volume 84.6 fl (80-94); Mean Platelet Volume 8.3 fl (7.4-10.4); Monocytes # 0.3 K/mm3 (0.1-1.0); Monocytes % 4.7 % (1.7-9.3); Neutrophils # 4.4 K/mm3 (1.8-7.8); Neutrophils % 68.6 % (37.0-80.0); Platelet Count 97 K/mm3 (142-424); Red Blood Count 4.28 M/mm3 (4.60-6.20); Red Cell Distribution Width 17.8 % (11.5-17.5); White Blood Count 6.4 K/mm3 (4.8-10.8)
--- NOTE | 2023-11-27 10:52 | SW/DCPLANNER ---
Addendum entered by Amanda Fried 11/28/23 08:30: I spoke w/ patient this AM regarding inpatient/outpatient drug and alcohol resources: patient expresses he is not interested in any resources at this time. Patient plans to discharge home today and start a program at his sister's [facility]. Original Note: I spoke w/ patient this AM regarding resources at time of discharge. I offered patient inpatient/outpatient alcohol resources at time of discharge. Patient stated that he plans to return home today and begin attending [facility] w/ his sister. Patient stated that he would like to see the outcome of this option prior to pursing any other resources at this time. I did provide this patient w/ my name and number for any future needs/questions.
[2023-11-27] MEDS: THIAMINE 100MG TABLET 100 MG PO (11:00)
[2023-11-27] MEDS: FAMOTIDINE 20MG/2ML VIAL 20 MG IV ×2 (11:00→21:00)
[2023-11-27] MEDS: FOLIC ACID 1MG TABLET 1 MG PO (11:01)
--- NOTE | 2023-11-27 11:12 | PC.NURSE ---
Pt oriented with no visible tremors. Last CIWA 0. Patient refused MVI bag, lovenox and gabapentin. States firmly he does not want any sedatives. Understands why he is not medically cleared for discharge. Is still trying to find ride to leave AMA
--- NOTE | 2023-11-27 12:54 | PC.NURSE ---
Pt oriented and cooperative. Per 1:1, patient has been appropriate and steady. 1:1 removed. Patient states understanding of calling for assistance if he feels light headed or dizzy. Will continue CIWA's
--- NOTE | 2023-11-27 13:44 | P.PN_ITS ---
Subjective *Date: 11/27/23 *Time: 22:51 Interval history: See was starting to show some improvement. Transitioned to Valium overnight. Received dose of Haldol. Sleeping better this morning. Tolerating p.o. intake. Afebrile. No longer having any hallucinations. On room air Medical Exam Vital signs and Labs for Last 24 Hours: Vital Signs Temp Pulse Pulse Resp BP Pulse Ox O2 Del Method 11/27/23 12:50 Room Air 11/27/23 10:54 Room Air 11/27/23 08:00 120 H 11/27/23 09:27 Room Air 11/27/23 07:54 97.9 F 121 H 18 152/99 H 97 Room Air 11/27/23 07:00 Room Air 11/27/23 06:40 107 H 11/27/23 05:00 Room Air 11/27/23 03:00 Room Air 11/27/23 01:00 Room Air 11/26/23 23:00 Room Air 11/26/23 21:00 Room Air 11/26/23 20:00 Room Air 11/26/23 20:00 114 H 11/26/23 20:00 97.7 F 110 H 20 136/107 H 97 Room Air 11/26/23 16:00 120 H 20 169/86 H 96 Room Air Intake and Output 11/26/23 11/27/23 11/27/23 23:59 07:59 15:59 Intake Total 420 / 1886 240 / 240 Output Total 0 / 0 0 / 0 Balance 420 / 1886 240 / 240 Intake: Intake, Oral Amount 420 / 1100 240 / 240 Output: Output, Urine Amount 0 / 0 0 / 0 Other: Number of Unmeasured Voids 1 1 Number of Bowel Movements 1 Weight 96.15 kg Patient Weight 11/27/23 23:59 Weight 96.15 kg Laboratory Results - last 24 hr 11/27/23 07:12: WBC 6.4, RBC 4.28 L, Hgb 12.4 L, Hct 36.2 L, MCV 84.6, MCH 29.0, MCHC 34.3, RDW 17.8 H, Plt Count 97 L, MPV 8.3, Neut % (Auto) 68.6, Lymph % (Auto) 23.8, [place] % (Auto) 4.7, Eos % (Auto) 2.3, Baso % (Auto) 0.5, Neut # (Auto) 4.4, Lymph # (Auto) 1.5, [place] # (Auto) 0.3, Eos # (Auto) 0.2, Baso # (Auto) 0.0, Sodium 137, Potassium 3.4 L, Chloride 101, Carbon Dioxide 29, Anion Gap 10.4, BUN 3 L, Creatinine 0.70, Estimated Creat Clear 155, Estimated GFR 115, Est GFR ( Amer) 140, Glucose 122 H, Calcium 8.2 L, Magnesium 1.9 D, Total Bilirubin 1.3, AST 69 H, ALT 37, Alkaline Phosphatase 79, Total Protein 6.6, Albumin 3.8, Globulin 2.8, Albumin/Globulin Ratio 1.4 I & O for Labs for Last 24 Hours: Intake & Output 11/24/23 11/25/23 11/26/23 11/27/23 23:59 23:59 23:59 23:59 Intake Total 188 / 1885 240 / 240 Output Total 0 / 0 0 / 0 Balance 1885 / 1885 240 / 240 Weight 96.19 kg 96.19 kg 96.15 kg Constitutional: Present no acute distress, obese and chronically ill appearing Head: Present atraumatic and normocephalic ENT: Present normal exam Neck: Present normal inspection Respiratory: Present normal respiratory effort; Absent rhonchi, wheezes or crackles Cardiac: Present Regular Rhythm and Tachycardia GI: Present soft and normal bowel sounds; Absent distention or tenderness Extremities: Present normal inspection and full ROM Skin: Present intact; Absent erythema Neuro: Present Grossly Intact, alert, awake, oriented x 3 and moves all extremities Comment:: tremor Assessment and Plan *Assessment and plan (1) Alcohol abuse with withdrawal without complication: Status: Acute Category: Medical Code(s): F10.130 - Alcohol abuse with withdrawal, uncomplicated (2) Elevated lactic acid level: Status: Acute Category: Medical Code(s): R79.89 - Other specified abnormal findings of blood chemistry (3) Hypomagnesemia: Status: Acute Category: Medical Code(s): E83.42 - Hypomagnesemia (4) COPD (chronic obstructive pulmonary disease): Status: Acute Qualifiers: COPD type: unspecified COPD Qualified Code(s): J44.9 - Chronic obstructive pulmonary disease, unspecified Category: Medical Code(s): J44.9 - Chronic obstructive pulmonary disease, unspecified (5) GERD (gastroesophageal reflux disease): Status: Acute Qualifiers: Esophagitis presence: esophagitis presence not specified Qualified Code(s): K21.9 - Gastro-esophageal reflux disease without esophagitis Category: Medical Code(s): K21.9 - Gastro-esophageal reflux disease without esophagitis Plan 58-year-old male with reported hypertention, Prediabetes, former smoker, obesity , hard of hearing, chronic alcoholic who presents emergency department for evaluation. Patient last drink 8 AM this morning with allegedly 2 shots. He started drinking heavily after his 2 and half years ago. On arrival presented with tachycardia, nauseas and hand tremor. Lab work was obtained. Significant for low Mg and elevated lactic acidosis. Low suspicious of sepsis. Alcohol level on the 326. Findings discussed with ER for admission and management. Continues to have elevated CIWA scores necessitating inpatient management. See was trending down, over the past 24 hours elevated as high as 21, improved to 4-10 today. Continues to require inpatient management. Pro blems addressed as follows: -Alcohol withdrawal without complication: elevated lactic acid and hypomagnesemia - Continue CIWA protocol. Seizure precautions continuously. -Valium per CIWA protocol. - Thiamine 100 mg IV x 3 doses - Multivitamins with magnesium and folate IV - Repeat CBC, CMP, magnesium ordered for the morning tomorrow. Electrolytes improving. Potassium 3.4, magnesium 1.9. - Patient interested in stopping alcohol use. performance improvement manager consult for assistance with detox from after medical stabilization -History of COPD: Not on oxygen, goal sats greater 90%. Condition stable. Resume home albuterol as needed GERD: On Protonix. Famotidine added. Former smoker. Nicotine patch as needed Lovenox for DVT prophylaxis. Full code Regular diet
--- NOTE | 2023-11-27 15:32 | PC.NURSE ---
Patient alert but forgetful. Cooperative. Denies pain. Zofran x 1 for nausea. Minimal oral intake. Urine output via ostomy. Antibiotics administered per orders. at bedside throughout shift
--- NOTE | 2023-11-27 15:34 | PC.NURSE ---
Patient alert and oriented. Tachycardic. Other vital signs stable. Denies pain and nausea. States desire to go home but cooperative. Up ad geraldine to [facility]. ST on tele. 1:1 no longer required.
[2023-11-27] MEDS: MULTIVITAMIN TABLET 1 EACH PO (17:53)
[2023-11-27] MEDS: SODIUM CHLORIDE 0.9% 10ML VIAL 10 ML IV (21:00)
[2023-11-27] MEDS: PANTOPRAZOLE 40MG VIAL 40 MG IV (21:00)
[2023-11-28] VITALS: BP 158/100; PULSE 107; PULSE 110; RESP 18; TEMP 37.3; O2SAT 97
[2023-11-28 04:00] VITALS: BP 149/117; PULSE 106; RESP 16; TEMP 37.2; O2SAT 97; BMI 32.5
--- NOTE | 2023-11-28 05:28 | PC.NURSE ---
patient has rested well t/o night with no complaints. CIWA's have been 0 t/o shift - patient states he is ready to go home today
[2023-11-28 06:58] LABS: Basophils % 0.8 % (0.1-2.0); Eosinophils # 0.1 K/mm3 (0.0-0.4); Eosinophils % 2.1 % (0.1-12.0); Hematocrit 37.3 % (42.0-52.0); Hemoglobin 12.9 g/dL (14.1-18.0); Lymphocytes # 1.2 K/mm3 (0.7-4.5); Lymphocytes % 25.7 % (10-50); Mean Corpuscular HGB Conc 34.4 g/dL (31.8-35.4); Mean Corpuscular Hemoglobin 28.8 pg (27.0-31.2); Mean Corpuscular Volume 83.7 fl (80-94); Mean Platelet Volume 8.5 fl (7.4-10.4); Monocytes # 0.3 K/mm3 (0.1-1.0); Monocytes % 5.9 % (1.7-9.3); Neutrophils % 65.4 % (37.0-80.0); Platelet Count 95 K/mm3 (142-424); Red Blood Count 4.46 M/mm3 (4.60-6.20); Red Cell Distribution Width 17.8 % (11.5-17.5); White Blood Count 4.6 K/mm3 (4.8-10.8)
[2023-11-28 07:05] LABS: Alanine Aminotransferase 36 U/L (12-78); Alkaline Phosphatase 76 U/L (38-126); Aspartate Amino Transferase 55 U/L (17-59); Bilirubin,Total 1.1 mg/dl (0.2-1.3); Blood Urea Nitrogen 8 mg/dl (9-20); Calcium 8.6 mg/dl (8.4-10.2); Carbon Dioxide 28 mmol/L (22.0-30.0); Chloride 100 mmol/L (98-107); Creatinine Clearance Estimated 140 mL/min (50-200); Estimated Glomerular Filt Rate 99 ml/min (>60); GFR (African American) 120 ML/MIN (>60); Glucose 116 mg/dl (74-100); Potassium 3.2 mmoL/L (3.5-5.1)
[2023-11-28 07:08] LABS: Albumin Level 3.9 g/dl (3.5-5.0); Albumin/Globulin Ratio 1.3 (1.1-1.8); Anion Gap 11.2 mEq/L (5-15); Globulin 2.9 g/dL (1.3-3.2); Sodium 136 mmol/L (136-145); Total Protein,Serum 6.8 g/dl (6.3-8.2)
--- NOTE | 2023-11-28 07:56 | P.DS_ITS ---
General Admission date:: 11/25/23 Discharge date: 11/28/23 HPI HPI HPI: This is a 58-year-old male with reported hypertention, Prediabetes, former smoker, obesity , hard of hearing, chronic alcoholic who presents emergency department for evaluation. Patient last drink 8 AM this morning with allegedly 2 shots. He started drinking heavily after his 2 and half years ago. Patient stated he wanting to discontinue alcohol use. Currently c/o palpitations and feeling shaky He has some sore throat over the last couple of days and is wanting to come off of alcohol at this time. He has vague abdo masha discomfort but no significant pain. There is associated nausea without vomiting. Patient has never been hospitalized for alcohol withdrawal. Admitted for further treatment and management. Hospital Course Hospital Course Hospital Course: 58-year-old male with reported hypertention, Prediabetes, former smoker, obesity , hard of hearing, chronic alcoholic who presents emergency department for evaluation. Patient last drink 8 AM this morning with allegedly 2 shots. He started drinking heavily after his 2 and half years ago. On arrival presented with tachycardia, nauseas and hand tremor. Lab work was obtained. Significant for low Mg and elevated lactic acidosis. Low suspicious of sepsis. Alcohol level on the 326. Findings discussed with ER for admission and management. Initially has significantly elevated CIWA scores. Gradually improved from scores 16-21 down to 0-4. Tolerated withdrawal treatment well. No longer having significant symptoms. Attempted to refer to medical management, patient would like to trial AA classes first. Stable for discharge home. Pr oblems addressed as follows: -Alcohol withdrawal without complication: elevated lactic acid and hypomagnesemia -Initiated for alcohol withdrawal. Started on CIWA protocol. Continue with seizure precautions. Patient had significant symptoms and minor hallucinations. No delirium tremens or seizures. Initially on Ativan, transitioned to Valium with better improvement. Received Haldol nightly. Started on rally pack and multivitamins. Overall showed improvement. At baseline mentation, alert and oriented x 3. Case management consulted and discussed medical management options. Patient to pursue AA classes to start with. Given resources for [employer] if he wishes to pursue medical management such as Vivitrol. Patient states understanding. -History of COPD: Not on oxygen, goal sats greater 90%. Condition stable. Resume home albuterol as needed GERD: On Protonix. Exam Data for Last 24 hours Vital signs and Labs for Last 24 Hours: Temp Pulse Resp BP Pulse Ox O2 Del Method 99.0 F 106 H 16 149/117 H 97 Room Air 11/28/23 04:00 11/28/23 04:00 11/28/23 04:00 11/28/23 04:00 11/28/23 04:00 11/28/23 06:25 Laboratory Results - last 24 hr 11/27/23 07:12: WBC 6.4, RBC 4.28 L, Hgb 12.4 L, Hct 36.2 L, MCV 84.6, MCH 29.0, MCHC 34.3, RDW 17.8 H, Plt Count 97 L, MPV 8.3, Neut % (Auto) 68.6, Lymph % (Auto) 23.8, [place] % (Auto) 4.7, Eos % (Auto) 2.3, Baso % (Auto) 0.5, Neut # (Auto) 4.4, Lymph # (Auto) 1.5, [place] # (Auto) 0.3, Eos # (Auto) 0.2, Baso # (Auto) 0.0, Sodium 137, Potassium 3.4 L, Chloride 101, Carbon Dioxide 29, Anion Gap 10.4, BUN 3 L, Creatinine 0.70, Estimated Creat Clear 155, Estimated GFR 115, Est GFR ( Amer) 140, Glucose 122 H, Calcium 8.2 L, Magnesium 1.9 D, Total Bilirubin 1.3, AST 69 H, ALT 37, Alkaline Phosphatase 79, Total Protein 6.6, Albumin 3.8, Globulin 2.8, Albumin/Globulin Ratio 1.4 11/28/23 06:23: WBC 4.6 L D, RBC 4.46 L, Hgb 12.9 L, Hct 37.3 L, MCV 83.7, MCH 28.8, MCHC 34.4, RDW 17.8 H, Plt Count 95 L, MPV 8.5, Neut % (Auto) 65.4, Lymph % (Auto) 25.7, [place] % (Auto) 5.9, Eos % (Auto) 2.1, Baso % (Auto) 0.8, Neut # (Auto) 3.0, Lymph # (Auto) 1.2, [place] # (Auto) 0.3, Eos # (Auto) 0.1, Baso # (Auto) 0.0, Sodium 136, Potassium 3.2 L, Chloride 100, Carbon Dioxide 28, Anion Gap 11.2, BUN 8 L D, Creatinine 0.80, Estimated Creat Clear 140, Estimated GFR 99, Est GFR ( Amer) 120, Glucose 116 H, Calcium 8.6, Total Bilirubin 1.1, AST 55, ALT 36, Alkaline Phosphatase 76, Total Protein 6.8, Albumin 3.9, Globulin 2.9, Albumin/Globulin Ratio 1.3 I & O for Last 24 hours: Intake & Output 11/25/23 11/26/23 11/27/23 11/28/23 23:59 23:59 23:59 23:59 Intake Total 1886 / 1886 600 / 600 Output Total 0 / 0 0 / 0 0 / 0 Balance 1886 / 1886 600 / 600 0 / 0 Weight 96.19 kg 96.19 kg 96.15 kg 99.518 kg Constitutional Constitutional: no acute distress *Routine HEENT Exam Head: Present normocephalic Eye: Present EOMI and PERRL ENT: Present mucous membranes moist *Routine Neck Exam Neck: Present supple; Absent lymphadenopathy *Routine Respiratory Exam Respiratory: Present CTA bilaterally *Routine Cardiovascular Exam Cardiovascular: Present RRR *Routine Abdominal Exam Abdominal: Present soft and normoactive bowel sounds; Absent tenderness *Routine Rectal Exam Patient deferred: visual exam *Routine Exam Patient deferred: penile exam *Routine Extremities Exam Extremities: Absent cyanosis, clubbing or edema *Routine Skin Exam Skin: Present warm; Absent rash *Routine Neurological Exam Neurological: Present alert, oriented X3 and moving all extremities; Absent altered mental status or tremors Results Data Completed and Pending Labs on day of discharge: Labs from last 24 hours 11/28/23 11/27/23 06:23 07:12 WBC 4.6 L D 6.4 RBC 4.46 L 4.28 L Hgb 12.9 L 12.4 L Hct 37.3 L 36.2 L MCV 83.7 84.6 MCH 28.8 29.0 MCHC 34.4 34.3 RDW 17.8 H 17.8 H Plt Count 95 L 97 L MPV 8.5 8.3 Neut % (Auto) 65.4 68.6 Lymph % (Auto) 25.7 23.8 [place] % (Auto) 5.9 4.7 Eos % (Auto) 2.1 2.3 Baso % (Auto) 0.8 0.5 Neut # (Auto) 3.0 4.4 Lymph # (Auto) 1.2 1.5 [place] # (Auto) 0.3 0.3 Eos # (Auto) 0.1 0.2 Baso # (Auto) 0.0 0.0 Sodium 136 137 Potassium 3.2 L 3.4 L Chloride 100 101 Carbon Dioxide 28 29 Anion Gap 11.2 10.4 BUN 8 L D 3 L Creatinine 0.80 0.70 Estimated Creat Clear 140 155 Estimated GFR 99 115 Est GFR ( Amer) 120 140 Glucose 116 H 122 H Calcium 8.6 8.2 L Magnesium 1.9 D Total Bilirubin 1.1 1.3 AST 55 69 H ALT 36 37 Alkaline Phosphatase 76 79 Total Protein 6.8 6.6 Albumin 3.9 3.8 Globulin 2.9 2.8 Albumin/Globulin Ratio 1.3 1.4 DS: Diagnosis Discharge Diagnosis (1) Alcohol abuse with withdrawal without complication: Status: Acute Code(s): F10.130 - Alcohol abuse with withdrawal, uncomplicated (2) Elevated lactic acid level: Status: Acute Code(s): R79.89 - Other specified abnormal findings of blood chemistry (3) Hypomagnesemia: Status: Acute Code(s): E83.42 - Hypomagnesemia (4) COPD (chronic obstructive pulmonary disease): Status: Acute Code(s): J44.9 - Chronic obstructive pulmonary disease, unspecified Qualifiers: COPD type: unspecified COPD Qualified Code(s): J44.9 - Chronic obstructive pulmonary disease, unspecified (5) GERD (gastroesophageal reflux disease): Status: Acute Code(s): K21.9 - Gastro-esophageal reflux disease without esophagitis Qualifiers: Esophagitis presence: esophagitis presence not specified Qualified Code(s): K21.9 - Gastro-esophageal reflux disease without esophagitis Meds Home Medications and Allergies Home Medications Medication Instructions Recorded Confirmed Type cyclobenzaprine 10 mg tablet 10 mg PO TID PRN Muscle Spasm 11/26/23 11/26/23 History multivitamin with minerals 1 tab PO DAILY 11/26/23 11/26/23 History omeprazole 20 mg capsule,delayed 20 mg PO BID 11/26/23 11/26/23 History release New Prescriptions to Start Prescriptions: Allergies Allergy/AdvReac Type Severity Reaction Status Date / Time No Known Allergies Allergy Verified 11/25/23 16:59 Discharge Plan Disposition Patient Disposition: Home, Self-Care Condition: Fair Discharge Order Discharge Orders: Discharge Order (Routine); Ordered 11/28/23 Ordered By: Matthias Hagan Follow up Plan Follow up with: Provider,Referral, MD [Primary Care Provider] - Enter time for follow up Prescriptions/Medication Reconciliation: Continued omeprazole 20 mg Capsule,Delayed Release(Dr/Ec) 20 mg PO BID cyclobenzaprine 10 mg Tablet 10 mg PO TID PRN (Reason: Muscle Spasm) multivitamin with minerals Tablet 1 tab PO DAILY Problem Reconciliation Problems Reviewed?: Yes Patient Discharge Instructions ACTIVITY: Continue current activity DIET: continue same diet Patient Instructions: Carbohydrate-Counting Diet, DI for Drug or Alcohol Withdrawal Providers Primary Care Provider: Provider,Referral Admit Provider: Matthias Hagan Attending Provider: Matthias Hagan
[2023-11-28 08:00] VITALS: BP 143/94; PULSE 107; PULSE 110; RESP 18; TEMP 36.8; O2SAT 99
[2023-11-28 08:29] LABS: Magnesium 1.6 mg/dl (1.6-2.3)
--- NOTE | 2023-11-28 08:46 | PC.NURSE ---
Pt requested iv and tele box removed. Alert and oriented. Cooperative.
[2023-11-29 20:29] LABS: Vitamin B1 136.3 nmol/L (66.5-200.0)
--- NOTE | 2023-12-04 13:41 | CARE MANAGER ---
Laboratory Tests 11/25/23 11/25/23 11/25/23 17:00 17:35 17:46 WBC 9.5 RBC 4.98 Hgb 14.2 Hct 42.5 MCV 85.4 MCH 28.5 MCHC 33.4 RDW 18.1 H Plt Count 162 MPV 7.5 Neut % (Auto) 78.3 Lymph % (Auto) 17.5 [place] % (Auto) 3.2 Eos % (Auto) 0.4 Baso % (Auto) 0.6 Neut # (Auto) 7.5 Lymph # (Auto) 1.7 [place] # (Auto) 0.3 Eos # (Auto) 0.0 Baso # (Auto) 0.1 PT INR VBG pH 7.42 H VBG pCO2 31.7 L VBG pO2 39.0 VBG HCO3 19.9 L VBG Total CO2 20.8 L VBG O2 Saturation 69.3 VBG Base Excess -4.7 L Sodium 140 Potassium 4.0 Chloride 98 Carbon Dioxide 23 Anion Gap 23.0 H BUN 6 L Creatinine 0.90 Estimated Creat Clear 125 Estimated GFR 86 Est GFR ( Amer) 105 Glucose 142 H Hemoglobin A1c Lactate Calcium 8.0 L Phosphorus Magnesium 1.4 L Total Bilirubin 0.8 AST 102 H ALT 43 Alkaline Phosphatase 109 Total Protein 7.9 Albumin 4.7 Globulin 3.2 Albumin/Globulin Ratio 1.5 Lipase 236 Vitamin B1 Vitamin B12 Urine Color Urine Appearance Urine pH Ur Specific Dana Urine Protein Urine Glucose (UA) Urine Ketones Urine Blood Urine Nitrate Urine Bilirubin Urine Urobilinogen Ur Leukocyte Esterase Urine RBC Urine WBC Ur Squamous Epith Cells Urine Bacteria Plasma/Serum Alcohol 326 H SARS-CoV-2 (PCR) Not detected Influenza A Untype (PCR) Not detected Influenza Type B (PCR) Not detected Group A Strep Rapid 11/25/23 11/25/23 11/25/23 17:52 18:46 20:17 WBC RBC Hgb Hct MCV MCH MCHC RDW Plt Count MPV Neut % (Auto) Lymph % (Auto) [place] % (Auto) Eos % (Auto) Baso % (Auto) Neut # (Auto) Lymph # (Auto) [place] # (Auto) Eos # (Auto) Baso # (Auto) PT INR VBG pH VBG pCO2 VBG pO2 VBG HCO3 VBG Total CO2 VBG O2 Saturation VBG Base Excess Sodium Potassium Chloride Carbon Dioxide Anion Gap BUN Creatinine Estimated Creat Clear Estimated GFR Est GFR ( Amer) Glucose Hemoglobin A1c Lactate 5.0 H Calcium Phosphorus Magnesium Total Bilirubin AST ALT Alkaline Phosphatase Total Protein Albumin Globulin Albumin/Globulin Ratio Lipase Vitamin B1 Vitamin B12 Urine Color Yellow Urine Appearance Slightly cloudy Urine pH 5.5 Ur Specific Dana >= 1.030 Urine Protein 2+ Urine Glucose (UA) Negative Urine Ketones Trace Urine Blood 2+ Urine Nitrate Negative Urine Bilirubin Negative Urine Urobilinogen 0.2 Ur Leukocyte Esterase Negative Urine RBC 10-20 Urine WBC None Ur Squamous Epith Cells Occasional Urine Bacteria Trace Plasma/Serum Alcohol SARS-CoV-2 (PCR) Influenza A Untype (PCR) Influenza Type B (PCR) Group A Strep Rapid Negative 11/25/23 11/26/23 11/26/23 23:20 02:05 05:11 WBC 5.3 D RBC 4.39 L Hgb 12.4 L D Hct 36.9 L MCV 83.9 MCH 28.3 MCHC 33.7 RDW 18.2 H Plt Count 114 L D MPV 7.7 Neut % (Auto) 62.8 Lymph % (Auto) 30.2 [place] % (Auto) 6.1 Eos % (Auto) 0.4 Baso % (Auto) 0.6 Neut # (Auto) 3.3 Lymph # (Auto) 1.6 [place] # (Auto) 0.3 Eos # (Auto) 0.0 Baso # (Auto) 0.0 PT 12.2 INR 1.14 H VBG pH VBG pCO2 VBG pO2 VBG HCO3 VBG Total CO2 VBG O2 Saturation VBG Base Excess Sodium 137 Potassium 3.2 L Chloride 101 Carbon Dioxide 26 Anion Gap 13.2 BUN 4 L D Creatinine 0.80 Estimated Creat Clear 135 Estimated GFR 99 Est GFR ( Amer) 120 Glucose 125 H Hemoglobin A1c 6.1 H Lactate 4.6 H 3.6 H Calcium 7.7 L Phosphorus 2.8 Magnesium 2.2 D Total Bilirubin 1.1 AST 81 H ALT 42 Alkaline Phosphatase 91 Total Protein 6.5 Albumin 3.7 D Globulin 2.8 Albumin/Globulin Ratio 1.3 Lipase Vitamin B1 136.3 Vitamin B12 675 Urine Color Urine Appearance Urine pH Ur Specific Dana Urine Protein Urine Glucose (UA) Urine Ketones Urine Blood Urine Nitrate Urine Bilirubin Urine Urobilinogen Ur Leukocyte Esterase Urine RBC Urine WBC Ur Squamous Epith Cells Urine Bacteria Plasma/Serum Alcohol SARS-CoV-2 (PCR) Influenza A Untype (PCR) Influenza Type B (PCR) Group A Strep Rapid 11/27/23 11/28/23 07:12 06:23 WBC 6.4 4.6 L D RBC 4.28 L 4.46 L Hgb 12.4 L 12.9 L Hct 36.2 L 37.3 L MCV 84.6 83.7 MCH 29.0 28.8 MCHC 34.3 34.4 RDW 17.8 H 17.8 H Plt Count 97 L 95 L MPV 8.3 8.5 Neut % (Auto) 68.6 65.4 Lymph % (Auto) 23.8 25.7 [place] % (Auto) 4.7 5.9 Eos % (Auto) 2.3 2.1 Baso % (Auto) 0.5 0.8 Neut # (Auto) 4.4 3.0 Lymph # (Auto) 1.5 1.2 [place] # (Auto) 0.3 0.3 Eos # (Auto) 0.2 0.1 Baso # (Auto) 0.0 0.0 PT INR VBG pH VBG pCO2 VBG pO2 VBG HCO3 VBG Total CO2 VBG O2 Saturation VBG Base Excess Sodium 137 136 Potassium 3.4 L 3.2 L Chloride 101 100 Carbon Dioxide 29 28 Anion Gap 10.4 11.2 BUN 3 L 8 L D Creatinine 0.70 0.80 Estimated Creat Clear 155 140 Estimated GFR 115 99 Est GFR ( Amer) 140 120 Glucose 122 H 116 H Hemoglobin A1c Lactate Calcium 8.2 L 8.6 Phosphorus Magnesium 1.9 D 1.6 D Total Bilirubin 1.3 1.1 AST 69 H 55 ALT 37 36 Alkaline Phosphatase 79 76 Total Protein 6.6 6.8 Albumin 3.8 3.9 Globulin 2.8 2.9 Albumin/Globulin Ratio 1.4 1.3 Lipase Vitamin B1 Vitamin B12 Urine Color Urine Appearance Urine pH Ur Specific [place] Urine Protein Urine Glucose (UA) Urine Ketones Urine Blood Urine Nitrate Urine Bilirubin Urine Urobilinogen Ur Leukocyte Esterase Urine RBC Urine WBC Ur Squamous Epith Cells Urine Bacteria Plasma/Serum Alcohol SARS-CoV-2 (PCR) Influenza A Untype (PCR) Influenza Type B (PCR) Group A Strep Rapid
== END 2023-11-28 10:26 | disposition home or self-care (01) | DRG 897 ==
LOC: ER 18:37 → 2ND 20:48
PROVIDERS: Nurse Practitioner Family; Admitting Provider Internal Medicine Adolescent Medicine; Emergency Provider Emergency Medicine; Visit Provider Internal Medicine Adolescent Medicine
DX: F10.130 Alcohol abuse with withdrawal, uncomplicated (principal); E83.42 Hypomagnesemia; J44.9 Chronic obstructive pulmonary disease, unspecified; K21.9 Gastro-esophageal reflux disease without esophagitis; Z87.891 Personal history of nicotine dependence; G47.30 Sleep apnea, unspecified; E66.9 Obesity, unspecified; Z68.32 Body mass index [BMI] 32.0-32.9, adult
CPT/HCPCS: 36415; 80053; 81001; 82607; 82803; 83036; 83605; 83690; 83735; 84100; 84425; 85025; 85610; 87430; 87636; 93005; 99285; J2405; J3475